=== PATIENT | male | born 1965 | race Caucasian/White ===

== ENCOUNTER 2024-02-04 06:02 | Observation (INO) ==
--- NOTE | 2024-01-14 09:41 | PAT Medication Instructions ---
Medication Instructions Date of Service January 14, 2024 Home Medications fluticasone propionate 50 mcg/actuation nasal spray,suspension 1 spray intranasal DAILY PRN lisinopril 20 mg tablet 20 mg PO QAM loratadine 10 mg tablet 10 mg PO DAILY PRN omeprazole 20 mg tablet,delayed release 20 mg PO QPM Continue as directed fluticasone propionate 50 mcg/actuation nasal spray,suspension 1 spray intranasal DAILY PRN(if needed) DO NOT take the morning of surgery lisinopril 20 mg tablet 20 mg PO QAM loratadine 10 mg tablet 10 mg PO DAILY PRN Take evening before surgery omeprazole 20 mg tablet,delayed release 20 mg PO QPM Other Notes NOTHING TO EAT OR DRINK AFTER MIDNIGHT. If you have any questions please call us at [phone] or [phone] or [phone] or [phone]
--- NOTE | 2024-01-21 09:36 | Anesthesiology Consultation ---
Date of Service January 21, 2024 Assessment & Plan (1) Encounter for pre-operative examination: - surgeon ordered medical clearance 01/23/24, GUY Carney: "...low risk..." Chart Review Chart Review: Acceptable Risk for Surgery and Patient seen in Pre Admission Testing Teaching & Discussion Pre-Anesthesia Teaching/Discussion Notes: Instructed NPO after midnight before surgery, except medications with 15 cc of water. Medication instructions provided according to the PAT guidelines. History Surgery Operation Date: 02/04/24 07:45 Proposed Procedures p C5-C7 Anterior Cervical Discectomy and Fusion, Spinal Cord Monitoring - Ildefonso Jorge DO Height/Weight Height: 5 ft 10 in Weight: 85.5 kg Allergies Allergy/AdvReac Type Severity Reaction Status Date / Time No Known Allergies Allergy Verified 01/14/24 07:29 Medications Home Medications Medication Instructions Recorded Confirmed Last Taken fluticasone propionate 50 1 spray intranasal DAILY PRN 01/14/24 01/14/24 Unknown mcg/actuation nasal Congestion spray,suspension lisinopril 20 mg tablet 20 mg PO QAM 01/14/24 01/14/24 Unknown loratadine 10 mg tablet 10 mg PO DAILY PRN seasonal 01/14/24 01/14/24 Unknown allergies omeprazole 20 mg tablet,delayed 20 mg PO QPM 01/14/24 01/14/24 Unknown release Past Medical History Medical History (Updated 01/21/24 @ 09:42 by Dyana Shafer PA-C) GERD (gastroesophageal reflux disease) controlled, stable per pt History of COVID- ~- symptoms resolved Hypertension controlled, stable per pt Seasonal allergies Patient denies h/o stroke, seizures, heart attack, heart failure, DM, blood clots/DVTs or blood transfusions. Exercise / Class Metabolic Activity II 4-5 Yardwork/Stairs/Walk up hill (denies chest discomfort or shortness of breath with one flight of stairs) Past Surgical History Surgical History History of lumbar fusion L4-L5, L5-S1 (1996) L4-L5, L5-S1 (2000) History of right inguinal hernia repair Hx laparoscopic cholecystectomy Hx of arthroscopy of shoulder Right Hx of colonoscopy Hx of lumbar discectomy (1991) L5-S1 Nausea after anesthesia Single episode (1996) after back surgery No issue with other surgeries/anesthesia Past Anesthesia History No Hx of Anesthesia Complications and No Family Hx of Anesthesia Complications History of PONV No Hx of Motion Sickness and History of PONV (denies needing scop patch) Social History Smoking Status: Never smoker Do You Dip or Chew Tobacco: No Hx Alcohol Use: Yes alcohol intake frequency: holidays/special occasions only Hx Substance Use: No substance use type: does not use Review of Systems Snoring, denies witnessed apneas. Patient denies chest pain, shortness of breath, dyspnea on exertion, fever, chills, cough, wheezing, or palpitations. Physical Exam Vital Signs Vitals BP 140/91 P 73 TEMP 98.3 SP02 96% on RA RESP 17 Physical Patient resting comfortably in chair in no acute distress, alert and oriented, responding appropriately throughout visit Limited cervical extension range of motion without pain TMD < 3 finger breadths Mallampati Score 2 Dentition: intact, denies chipped or loose teeth, caps/crowns, implants or bridges Lungs: normal respiratory effort. Good air movement, clear throughout to aus cultation, no adventitious breath sounds Cardiac: regular rate and rhythm, no murmurs noted Carotid arteries: negative bruit bilat Lab Results Anesthesia Preop Results Results Anesthesia Widget: WBC 6.65 K/ul (4.8-10.8) 01/21/24 Hgb 16.3 g/dl (14.0-18.0) 01/21/24 Hct 46.5 % (42.0-52.0) 01/21/24 Plt 218 K/uL (130-400) 01/21/24 Na 139 mmol/L (136-145) 01/21/24 K 4.3 mmol/L (3.5-5.1) 01/21/24 Cl 104 mmol/L (98-107) 01/21/24 CO2 29 mmol/L (21-32) 01/21/24 BUN 15 mg/dl (6-23) 01/21/24 Creat 1.26 mg/dl (0.6-1.4) 01/21/24 Glucose Level 94 mg/dl (70-99(Fasting)) 01/21/24 PT 10.3 Seconds (9.0-12.0) 01/21/24 PTT 26 Seconds (21-31) 01/21/24 INR 0.9 (0.9-1.1) 01/21/24 Urine Color Yellow 01/21/24 Urine Appearance Clear (Clear) 01/21/24 Urine pH 6.0 (4.5-7.5) 01/21/24 Urine Specific [place] 1.011 (1.000-1.030) 01/21/24 Urine Protein Negative (Negative) 01/21/24 Urine Glucose (UA) Negative (Negative) 01/21/24 Urine Ketones Negative (Negative) 01/21/24 Urine Blood Negative (Negative) 01/21/24 Urine Nitrite Negative (Negative) 01/21/24 Urine Bilirubin Negative (Negative) 01/21/24 Urine Urobilinogen Negative (Negative) 01/21/24 Urine Leukocyte Esterase Negative (Negative) 01/21/24 Blood Type O Positive 01/21/24 Antibody Screen NEGATIVE 01/21/24 Testing Electrocardiogram Date: 01/21/24 NSR, rate 85 bpm Chest X-Ray Date: 01/21/24 No active disease in the chest. Stress Test Date: 09/11/18 Exercise METS 13 MPHR 99% Negative for ischemia or infarction
[2024-02-04] MEDS ORDERED: PROPOFOL IV EMULSION 10 MG/ML 20 ML VIAL IV ONE (06:37)
[2024-02-04] MEDS ORDERED: LIDOCAINE 2% 2 ML VIAL/AMP(20MG/ML) INFIL ONE (06:37)
[2024-02-04] MEDS ORDERED: ROCURONIUM BROMIDE 10 MG/ML 5 ML VIAL IV ONE ×2 (06:37→08:16)
[2024-02-04] MEDS ORDERED: fentaNYL citrate PF 100 MCG/2 ML VIAL ONE (06:38)
[2024-02-04] MEDS ORDERED: MIDAZOLAM HCL 1 MG/ML 2ML VIAL ONE (06:38)
[2024-02-04] MEDS: LR 15ML/HR IV SCH (06:45)
[2024-02-04] MEDS: LR 60ML/HR IV SCH (06:46)
[2024-02-04] MEDS: GABAPENTIN 600 MG DOSE PO SCH (06:46)
[2024-02-04] MEDS: ACETAMINOPHEN 500 MG TAB PO SCH (06:48)
[2024-02-04] MEDS: CeleBREX 200 MG CAP PO SCH (06:49)
[2024-02-04] MEDS ORDERED: ONDANSETRON INJ 2 MG/ML 2 ML VIAL ONE (07:20)
--- NOTE | 2024-02-04 07:43 | History & Physical Bridge Note ---
Date of Service February 04, 2024 History & Physical Bridge Note I have examined the patient, reviewed the History & Physical and in the interval since the performance of the History & Physical I have noted the following changes of clinical significance: no changes noted
--- NOTE | 2024-02-04 07:44 | History & Physical Report ---
Date of Service February 04, 2024 Assessment & Plan (1) Cervical stenosis of spinal canal: Plan: Anterior cervical discectomy and fusion C5-C7 History of Present Illness Chief Complaint: Neck and arm pain Primary Care Provider: Lisa Frances MD [age]-year-old male presents with persistent neck and arm pain after failing course of nonoperative care is here for surgical invention. Allergies Allergy/AdvReac Type Severity Reaction Status Date / Time No Known Allergies Allergy Verified 01/14/24 07:29 Home Medications Medication Instructions Recorded Confirmed Type fluticasone propionate 50 1 spray intranasal DAILY PRN 01/14/24 02/04/24 History mcg/actuation nasal Congestion spray,suspension lisinopril 20 mg tablet 20 mg PO QAM 01/14/24 02/04/24 History loratadine 10 mg tablet 10 mg PO DAILY PRN seasonal 01/14/24 02/04/24 History allergies omeprazole 20 mg tablet,delayed 20 mg PO QPM 01/14/24 02/04/24 History release Past Med/Surg History Problem List (Updated 02/04/24 @ 07:44 by Ildefonso Jorge DO) Cervical stenosis of spinal canal Encounter for pre-operative examination Medical History (Updated 02/04/24 @ 07:44 by Ildefonso Jorge DO) History of COVID-19 ~- symptoms resolved Seasonal allergies GERD (gastroesophageal reflux disease) controlled, stable per pt Hypertension controlled, stable per pt Surgical History Nausea after anesthesia Single episode (1996) after back surgery No issue with other surgeries/anesthesia Hx of lumbar discectomy (1991) L5-S1 History of lumbar fusion L4-L5, L5-S1 (1996) L4-L5, L5-S1 (2000) History of right inguinal hernia repair Hx of arthroscopy of shoulder Right Hx laparoscopic cholecystectomy Hx of colonoscopy Social History Smoking Status: Never smoker Second Hand Exposure: Yes (hx as child); Do You Dip or Chew Tobacco: No; Tobacco Cessation Education Requested by Patient: No Hx Alcohol Use: Yes Hx Substance Use: No Preferred Language: Hungarian Communication Ability: Effective Washing Machine Repairer Required: No Beliefs That Will Affect Care: None Current Living Situation: Spouse Other Information That Helps Us Care for You: No Feels Safe at Home: Yes Safety Concerns: Feels Safe At This Time Assistive Devices: Glasses Physical Exam Physical Exam: Patient is alert and oriented heart regular in rhythm lungs clear Results & Data Results & Data Vital Signs (Past 12 Hours) Vital Signs Temp Pulse Resp BP Pulse Ox O2 Del Method 02/04/24 06:32 36.9 C 91 H 18 148/96 H 97 Room Air
[2024-02-04] MEDS: ceFAZolin 2000MG 2,000 MG/15 ML SYR IV SCH ×2 (07:50→16:03)
[2024-02-04] MEDS ORDERED: DEXAMETHASONE SOD INJ 4 MG/ML VIAL ONE (08:05)
[2024-02-04] MEDS ORDERED: HYDROmorphone INJ 2 MG/ML SYR/VIAL ONE (08:06)
[2024-02-04] MEDS ORDERED: ePHEDrine sulfate 50 MG/ML AMP ONE (08:06)
[2024-02-04] MEDS ORDERED: SUGAMMADEX SODIUM 200 MG/2 ML VIAL IV ONE (08:16)
[2024-02-04] MEDS ORDERED: ONDANSETRON INJ 2 MG/ML 2 ML VIAL IV PRN (08:29)
[2024-02-04] MEDS ORDERED: ePHEDrine sulfate 50 MG/ML AMP IV PRN (08:29)
[2024-02-04] MEDS ORDERED: ATROPINE SULFATE 0.1 MG/ML 10ML SYR IV PRN (08:29)
[2024-02-04] MEDS ORDERED: HYDROmorphone INJ 2 MG/ML SYR/VIAL IV PRN (08:29)
[2024-02-04] MEDS ORDERED: PROMETHAZINE HCL 6.25 MG in SODIUM CHLORIDE 0.9% 50 ML IV PRN (08:29)
[2024-02-04] MEDS: FLOSEAL HEMOSTATIC MATRIX 10ML TOP ONE (09:09)
[2024-02-04] MEDS: ceFAZolin 330 MG/ML 1 GM VIAL ONE (09:09)
--- NOTE | 2024-02-04 09:16 | Operative Report ---
Post Operative Report Pre & Post Diagnosis Operation Date: 02/04/24 07:45 Pre-Op Diagnosis: Cervical spinal stenosis with radiculopathy Post-Op Diagnosis: Same I identified the patient and participated in the time-out.: Yes Procedure Operation Date: 02/04/24 07:45 Actual Procedures #1 anterior cervical discectomy with bilateral foraminotomies C5-C6 C6-C7. #2 anterior cervical arthrodesis C5-C6 C6-C7. #3 placement of Spira 7 mm cage at C5-C6 and 8 mm cage at C6-C7 both filled with os design bone graft. #4 application of K2 M plate and screws from C5 to c 7. Surgeon Ildefonso Jorge, DO Airfield Manager Lianet Jacobo Estimated Blood Loss 10 Findings Consistent with Post-Op Diagnosis Specimens None Indications This is a 58-year-old male who presents problems diagnosis of failed course of nonoperative care is here for surgical invention. Description of Procedure Patient was met with identified informed consent obtained. Patient was then taken to the operative suite underwent ablation placed in a supine position on the Maco table with the head Lambert santoro. All bony promises well-padded eyes inspected to ensure no external pressure placed upon them. This point the anterior cervical spine was prepped and draped in normal sterile fashion. The assistance of fluoroscopy identified the C6 vertebral body and a transverse incision was placed along the right anterior aspect of the cervical spine overlying this region. Blunt dissection with assistance of bipolar elec trocautery was performed down to and exposing the anterior cervical spine from C5-C7. Self-retaining tractors placed. Then performed a complete discectomy of C5-C6 out to the uncovertebral joints bilaterally. [place] distraction pins utilized to assist in visualization. Removed all posterior annular fibers longitudinal ligament bilateral foraminotomies performed. Endplates burred to subcortical bleeding bone and a 7 mm spiral cage at the filled with os design tapped in position. Then proceeded to C6-C7. Again complete discectomy performed out to the uncovertebral joints bilaterally. [place] distracting his pins again utilized. Removed all posterior fibers longitudinal ligament bilateral foraminotomies performed. Endplates burred to subcortical bleeding bone and an 8 mm Spira cage filled with os design bone graft apposition. Distracting apparatus was removed. All anterior osteophytes burred to a smooth cortical surface and a K2 M plate screws applied with the assistance of flu oroscopy. The incision was then copiously irrigated explored to ensure no damage to surrounding structures remaining bleeding. 10 round SHAHNAZ drain inserted. The incision was then closed with 2 Vicryl in the fascia and 4 Monocryl for final skin closure. Steri-Strips and sterile dressing placed. Patient waken taken to PACU in stable condition. Please note spinal cord monitoring was last at the procedure no changes noted. Lastly Lianet Jacobo was present at the entire procedure and all the patient positioning complex portion of the surgery and final skin closure. I attest to the content of the Intraoperative Record and any orders documented therein. Any exceptions are noted below.
[2024-02-04] MEDS: LABETALOL HCL IV 5 MG/ML 20ML IV STA ×2 (09:51→11:46)
--- NOTE | 2024-02-04 10:01 | Fluoroscopy Report ---
FL cervical 2-3V CLINICAL HISTORY: C5-7 CERVICAL DISCECTOMY AND FUSION TECHNIQUE: 2 views were obtained with the C-arm in the OR with the above procedure. Total fluoroscopy time was 14.0 seconds. Radiation dose was 2.5 to mGy. Comparison: None available at the time of this dictation. FINDINGS/IMPRESSION: Intraoperative images were obtained of C5-C7 ACDF. Please correlate with intraoperative fluoroscopy and operative report. ACT 112: Negative or not required by law. Electronically signed by: Mat Stark M.D. 02/04/2024 9:59 AM
[2024-02-04] MEDS: LABETALOL HCL IV 5 MG/ML 20ML IV ONE (10:02)
[2024-02-04] MEDS: fentaNYL citrate PF 100 MCG/2 ML VIAL IV PRN (10:14)
[2024-02-04] MEDS ORDERED: NALOXONE HCL 0.4 MG/1 ML VIAL/CARP IV PRN (11:28)
[2024-02-04] MEDS ORDERED: diphenhydrAMINE Capsule 25 MG CAP PO PRN (11:28)
[2024-02-04] MEDS ORDERED: bisacodyL 10 MG SUPP PR PRN (11:28)
[2024-02-04] MEDS ORDERED: ONDANSETRON 4 MG OD TAB PO PRN (11:28)
[2024-02-04] MEDS ORDERED: HYDROmorphone INJ 0.5 MG/0.5 ML SYR IV PRN (11:28)
[2024-02-04] MEDS ORDERED: hydrOXYzine HCl 25 MG TAB PO PRN (11:28)
[2024-02-04] MEDS ORDERED: DO NOT ADMINISTER FLU VACCINE PRN (11:28)
[2024-02-04] MEDS ORDERED: LORazepam 0.5 MG in SYRINGE 0.25 ML IV PRN (11:28)
[2024-02-04] MEDS ORDERED: dexAMETHasone 8 MG in SYRINGE 0 ML IV PRN (11:28)
[2024-02-04] MEDS ORDERED: LORazepam 0.5 MG TAB PO PRN (11:28)
[2024-02-04] MEDS ORDERED: FAMOTIDINE 20 MG TAB PO PRN (11:28)
[2024-02-04] MEDS ORDERED: SOD PHOSPHATE/SOD BIPHOSPHATE ENEMA 132 ML BTL PR PRN (11:28)
[2024-02-04] MEDS ORDERED: RACEPINEPHRINE 2.25% NEBU SOLN 0.5 ML VIAL INH PRN (11:28)
[2024-02-04] MEDS ORDERED: MAGNESIUM HYDROXIDE SUSP 30 ML UDC PO PRN (11:28)
[2024-02-04] MEDS ORDERED: LORATADINE 10 MG TAB PO PRN (11:28)
[2024-02-04] MEDS ORDERED: traMADol HCL 50 MG TABLET PO PRN (11:28)
[2024-02-04] MEDS ORDERED: DO NOT ADMINISTER PNEUMOCOCCAL VACCINE PRN (11:28)
[2024-02-04] MEDS ORDERED: PROMETHAZINE HCL 12.5 MG in SODIUM CHLORIDE 0.9% 50 ML IV PRN (11:28)
[2024-02-04] MEDS ORDERED: ALUMINUM/MAGNESIUM SUSP 30 ML UDC PO PRN (11:28)
[2024-02-04] MEDS ORDERED: ACETAMINOPHEN 1,000 MG/100 ML VIAL IV PRN (11:28)
[2024-02-04] MEDS ORDERED: FLUTICASONE PROPIONATE NA SPR 16 GM BTL NAE PRN (11:28)
[2024-02-04] MEDS ORDERED: ACETAMINOPHEN 500 MG TAB PO PRN (11:28)
[2024-02-04] MEDS ORDERED: METOCLOPRAMIDE HCL INJ 5 MG/ML 2 ML VIAL IV PRN (11:28)
--- NOTE | 2024-02-04 11:56 | Anesthesiology Progress Note ---
Date of Service February 04, 2024 Anesthesia Post Procedure Vital Signs Vital Signs: Temp Pulse Pulse Pulse Resp BP BP 02/04/24 11:45 36.4 C L 78 16 149/92 H 02/04/24 11:28 78 16 02/04/24 11:28 02/04/24 11:15 36.5 C 73 16 158/90 H 02/04/24 11:05 74 12 140/86 02/04/24 10:55 69 18 151/89 H 02/04/24 10:50 62 13 149/105 H 02/04/24 10:40 36.5 C 75 20 142/92 H 02/04/24 10:30 79 24 152/86 H 02/04/24 10:20 60 12 161/93 H 02/04/24 10:10 79 12 157/95 H 02/04/24 10:00 72 10 L 172/100 H 02/04/24 09:51 78 168/117 H 02/04/24 09:50 75 14 168/117 H 02/04/24 09:40 78 14 173/92 H 02/04/24 09:35 64 12 182/101 H 02/04/24 09:25 36.2 C L 87 13 156/112 H 02/04/24 06:32 36.9 C 91 H 18 148/96 H Pulse Ox Pulse Ox O2 Del Method O2 Del Method O2 Flow Rate O2 Flow Rate 02/04/24 11:45 93 Nasal Cannula 2 02/04/24 11:28 93 Nasal Cannula 2 02/04/24 11:28 93 Nasal Cannula 2 02/04/24 11:15 91 Nasal Cannula 2 02/04/24 11:05 94 Nasal Cannula 2 02/04/24 10:55 93 Nasal Cannula 2 02/04/24 10:50 93 Nasal Cannula 2 02/04/24 10:40 94 Nasal Cannula 2 02/04/24 10:30 94 Nasal Cannula 2 02/04/24 10:20 95 Nasal Cannula 2 02/04/24 10:10 96 Nasal Cannula 2 02/04/24 10:00 96 Nasal Cannula 2 02/04/24 09:51 02/04/24 09:50 98 Nasal Cannula 2 02/04/24 09:40 95 Nasal Cannula 2 02/04/24 09:35 92 Nasal Cannula 2 02/04/24 09:25 94 Room Air 02/04/24 06:32 97 Room Air Pain Intensity Neck: Pain Intensity: 3 Right Arm: Pain Intensity: 5 Transfer of Care Handoff Completed per policy Notes Mental Status: alert / awake / arousable and participated in evaluation Patient Amnestic to Procedure: Yes Nausea / Vomiting: adequately controlled Pain: adequately controlled Airway Patency, RR, SpO2: stable & adequate BP & HR: stable & adequate Hydration State: stable & adequate Anesthetic Complications: no major complications apparent
[2024-02-04] MEDS: LACTATED RINGER'S 1,000 ML IV SCH (12:01)
[2024-02-04] MEDS: HYDROmorphone INJ 1 MG/ML SYRINGE IV PRN (12:04)
[2024-02-04] MEDS: ONDANSETRON INJ 2 MG/ML 2 ML VIAL IV PRN (13:42)
[2024-02-04] MEDS: oxyCODONE HCL IR 5 MG TAB (IMMEDIATE RELEASE) PO PRN (18:57)
[2024-02-04] MEDS: PANTOprazole 40 MG TAB PO SCH (20:25)
[2024-02-04] MEDS: DOCUSATE SODIUM/SENNA 50/8.6MG TAB PO SCH (20:25)
[2024-02-05] MEDS: POLYETHYLENE (MIRALAX) 17 GM PACK PO SCH (06:05)
[2024-02-05] MEDS: lisinopril 20 MG TAB PO SCH (07:47)
[2024-02-05] MEDS: dexAMETHasone 6 MG in SYRINGE 0 ML IV SCH (07:47)
--- NOTE | 2024-02-05 08:47 | Discharge Summary ---
Date of Service February 05, 2024 Admission HPI Per Admitting Provider [age]-year-old male presents with persistent neck and arm pain after failing course of nonoperative care is here for surgical invention. Principal Diagnosis Cervical spinal stenosis with radiculopathy Discharge Data Allergies Allergy/AdvReac Type Severity Reaction Status Date / Time No Known Allergies Allergy Verified 01/14/24 07:29 Procedures Performed Operation Date: 02/04/24 07:45 Actual Procedures p C5-C7 Anterior Cervical Discectomy and Fusion, Spinal Cord Monitoring(Not Applicable) - Ildefonso Jorge DO Ordered Studies 02/04/24 07:45 [place] cervical 2-3V Routine Hospital Course (1) Cervical stenosis of spinal canal: Patient went into cervical discectomy fusion tolerated as well as taken to orthopedic for postoperative postop bleeding swallowing well. No hoarseness. Marked improvement of his arm pain. SHAHNAZ drain decreasing probably. Pain well- controlled. Excellent strength testing. Subsidy discharged home. Discharge orders instructions from the chart for further review. Total Time Total Time Spent Total Time Spent (In Minutes): 20 minutes Discharge Plan Discharge Items Patient Disposition: Home - Self-Care Reason For Visit: Cervical Disc Disease, Cervical Radiuclar Pain, Ce Discharge Diagnosis: Cervical spinal stenosis with radiculopathy Activity: As commented below Non-emergency contact: Primary Care Provider Call non-emergency contact if: you have any medication questions Follow-up/Referrals: Lisa Frances MD [Primary Care Provider] - Diet: Regular Addtl Attending Provider Instructions: ACTIVITY RECOMMENDATIONS: SELF CARE INSTRUCTIONS AFTER CERVICAL FUSIONS 1. No smoking. Smoking drastically decreases the chance of a solid fusion. 2. No bending, lifting more than 5 pounds, or twisting (roll like a log when turning in bed). 3. You may shower 3 days after surgery. Thoroughly dry wound. Do not soak in the tub. 4. Cervical collar: Must be worn at all times including sleeping. You may remove the brace only to bath, eat and if you are sitting in a recliner. 5. Please walk as much as you can for exercise. Gradually increase the distance that you walk as your endurance increases. SPECIAL CARE INSTRUCTIONS: VERY IMPORTANT TO READ AND REVIEW A. Do not take any anti-inflammatory medications (i.e. Indocin, Advil, Aspirin, Naprosyn, Aleve, Motrin, etc.) as these may inhibit the chance of a solid fusion. Tylenol is okay to take. B. Your surgical incision has been closed with a cosmetic suture under the skin that will dissolve in about 6 weeks. In 14 days, you can use a pair of clean scissors and cut the suture that is left outside of the skin at the ends of your incision. C. Complications are uncommon, but please contact us if you have any signs or symptoms of: 1. wound infection (fever higher than 102.5 degrees F, redness, separation of wound, drainage, or increasing pain from the incision) 2. blood clots in legs (pain, swelling, redness and warmth in legs) 3. urinary tract infection (fever higher than 102.5 degrees, burning upon urination or increased frequency of urination) 4. nerve problems (inability to walk on your toes or heels, numbness, loss of bowel or bladder control) 5. any other symptoms that concern you. D. Please call the office at if you have any concerns or questions about your operation or recovery. MANAGING PAIN AFTER SPINAL SURGERY 1. Narcotic medication is intended for short-term use and will be provided for surgical pain. Surgical pain usually lasts for a period of 4-6 weeks. Narcotic medication includes Percocet, Vicodin, Darvocet, Tylenol #3 or Lortab. 2. Longer-term pain is more appropriately treated with non-narcotic medication such as Tylenol ES. 3. Muscle spasm is not appropriately treated with narcotics. Muscle relaxers such as Soma, Flexeril or Skelaxin can be used along with Tylenol ES. 4. Remember that we all live with some "aches and pains". This is not unusual or uncommon after an injury or as we get older. 5. We will provide appropriate medication within the normal guidelines of their prescribed use. We will also be very cautious and aware of potential abuse and extended duration of patients' medication needs. 6. Please allow 2-3 days to process refills. Prescriptions will not be mailed but must be picked up at the office. FOLLOW UP VISIT: Keep your scheduled follow-up appointment. Any questions, please call the office at . Pending Studies at Discharge: No Stand-Alone Forms: My [facility], Smoking Cessation Medications and DC Order Prescriptions: New tramadol 50 mg tablet 50 mg PO Q6H PRN (Reason: pain, moderate) Qty: 20 0RF oxycodone 5 mg tablet 5 mg PO Q6H PRN (Reason: pain) Qty: 30 0RF Continued lisinopril 20 mg Tablet 20 mg PO QAM fluticasone propionate [Flonase] 50 mcg/actuation [place],Suspension 1 spray INTRANASAL DAILY PRN (Reason: Congestion) Rx Instructions: administer into each nostril loratadine 10 mg Tablet 10 mg PO DAILY PRN (Reason: seasonal allergies) omeprazole 20 mg Tablet,Delayed Release (Dr/Ec) 20 mg PO QPM Discharge Orders: Discharge Order (Routine); Ordered 02/05/24 Ordered By: Ildefonso Jorge Admission Data Admit Date/Time: 02/04/24 09:18 Attending Provider: Ildefonso Jorge Admit Provider: Ildefonso Jorge Primary Care Provider: Lisa Frances V.
== END 2024-02-05 11:17 | disposition home or self-care (01) ==
LOC: 3E 06:02 → ASU 06:02
DX: M25.78 Osteophyte, vertebrae; Z98.1 Arthrodesis status; M48.02 Spinal stenosis, cervical region; K21.9 Gastro-esophageal reflux disease without esophagitis; Z79.899 Other long term (current) drug therapy; M54.12 Radiculopathy, cervical region; I10 Essential (primary) hypertension